=== PATIENT | female | born 1945 | race Caucasian/White ===

== ENCOUNTER 2016-06-11 15:09 | Emergency (ER) | payer OTHER ==
[~2016-06-11] VITALS: Ht 157.5 cm; Wt 103.1 kg
[~2016-06-11 15:09] MED LIST: ADVAIR 500/501 DISK IH; ALEVE220 MG PO; ANTIVERT25 MG PO; ARICEPT10 MG PO; ARICEPT5 MG PO; ASPIR 8181 M1 PO; ASPIRIN EC325 MG PO; ASPIRIN81 M1 PO; ATENOLOL50 M1 PO; ATENOLOL50 MG PO; ATORVASTATIN CA40 MG PO; CARVEDILOL3.125 MG PO; CEREFOLIN NAC1 EACH PO; CRESTOR20 MG PO; DUONEB 2.5-0.5 M3 ML IH; ELIQUIS5 MG PO; FUROSEMIDE20 MG PO; GLUCOPHAGE500 MG PO; K-DUR20 MEQ PO; LISINOPRIL40 MG PO; LISINOPRIL5 MG PO; LOW DOSE ASPIRI81 M2 PO; METOLAZONE2.5 MG PO; MICARDIS HCT1 TABLE1 PO; Micardis HCT 80 mg/1 PO; NEXIUM40 MG PO; OMEPRAZOLE40 M1 PO; PANTOPRAZOLE SO40 MG PO; POTASSIMIN75 MG PO; ULTRAM50 MG PO; VITAMIN D1000 UNIT PO
[2016-06-11 15:19] VITALS: BP 147/70
[2016-06-11] MEDS ORDERED: PERCOCET 5/31 TABLET PO (17:28)
== END 2016-06-11 18:17 | disposition home or self-care (01) ==
LOC: EME 15:09
PROC: 2W38X1Z Immobilization of Right Upper Extremity using Splint (ICD-10-PCS; principal; 2016-06-11)
DX: S52.101A Unspecified fracture of upper end of right radius, initial encounter for closed fracture (principal); M25.421 Effusion, right elbow; W10.1XXA Fall (on)(from) sidewalk curb, initial encounter; Z88.2 Allergy status to sulfonamides; Z88.0 Allergy status to penicillin
CPT/HCPCS: 73080; 73090; 99281; 99284

== ENCOUNTER 2016-10-08 07:49 | Emergency (ER) | payer OTHER ==
[~2016-10-08] VITALS: Ht 157.5 cm; Wt 95.5 kg
[~2016-10-08 07:49] MED LIST changes: +PERCOCET 5/31 TABLET PO
[2016-10-08] MEDS ORDERED: TYLENOL WITH C1 EACH PO (11:50)
[2016-10-08 12:09] VITALS: BP 137/84
== END 2016-10-08 12:00 | disposition home or self-care (01) ==
LOC: EME 07:49
PROC: 0RSKXZZ Reposition Left Shoulder Joint, External Approach (ICD-10-PCS; principal; 2016-10-08)
DX: S43.005A Unspecified dislocation of left shoulder joint, initial encounter (principal); W01.0XXA Fall on same level from slipping, tripping and stumbling without subsequent striking against object, initial encounter; Y92.009 Unspecified place in unspecified non-institutional (private) residence as the place of occurrence of the external cause; F03.90 Unspecified dementia, unspecified severity, without behavioral disturbance, psychotic disturbance, mood disturbance, and anxiety
CPT/HCPCS: 71010; 73030; 99281; 99285; J2270